=== PATIENT | male | born 1965 | race Two or more races ===

== ENCOUNTER 2023-10-25 07:50 | Emergency (ER) | payer OTHER ==
[~2023-10-25] VITALS: Ht 172.7 cm; Wt 72.6 kg
[2023-10-25] MEDS ORDERED: MECLIZINE HCL 25 MG TABLET ONE (08:14)
[2023-10-25] MEDS: IV NS 0.9% 500 ML BAG IV ONE (08:26)
[2023-10-25] MEDS: MECLIZINE HCL 12.5 MG TABLET PO ONE (08:27)
[2023-10-25 08:35] LABS: CALCIUM, SERUM 8.1 mg/dL (8.5-10.1); CREATININE 1.1 mg/dL (0.6-1.3); POTASSIUM 3.9 mmol/L (3.5-5.1)
[2023-10-25 08:36] LABS: BASOPHILS % (AUTO) 0.6 % (0.0-2.0); EOSINOPHILS # (AUTO) 0.1 K/uL (0.0-0.7); HEMATOCRIT 46 % (39-51); HEMOGLOBIN 15.1 g/dL (13.5-17.5); LYMPHOCYTES # (AUTO) 1.1 K/uL (0.8-4.8); LYMPHOCYTES % (AUTO) 19.5 % (20.0-44.0); MEAN CORPUSCULAR HEMOGLOBIN 31 PG (26.0-33.0); MEAN CORPUSCULAR HGB CONC 33 g/dl (31.0-36.0); MEAN CORPUSCULAR VOLUME 94 fL (80-96); MONOCYTES # (AUTO) 0.4 K/uL (0.1-1.30); MONOCYTES % (AUTO) 7.6 % (2.0-12.0); NEUTROPHILS % (AUTO) 70.3 % (43.0-81.0); PLATELET COUNT (AUTO) 223 K/uL (150-450); RED BLOOD CELL COUNT(AUTO) 4.86 MIL/uL (4.5-6.0); RED CELL DISTRIBUTION WIDTH 13.1 % (11.5-15.0); WHITE BLOOD COUNT (AUTO) 5.7 K/uL (4.3-11.0)
[2023-10-25] MEDS ORDERED: MECL-159 PO (09:00)
[2023-10-25 09:24] VITALS: BP 122/66; TEMP 98; O2SAT 99
== END 2023-10-25 09:25 | disposition home or self-care (01) ==
LOC: ER 07:58
DX: R42 Dizziness and giddiness (principal)
CPT/HCPCS: 99284; 96360; 93005; 85025; 80048; 36415; J8597; J7040